=== PATIENT | male | born 1965 | race Caucasian/White ===

== ENCOUNTER 2016-09-19 14:29 | Inpatient (IN) ==
--- NOTE | 2016-09-19 15:03 | Emergency Department Note ---
Disposition Clinical Impression: Suicidal ideations Depression (emotion) Qualifiers: Depression Type: unspecified Qualified Code(s): F32.9 - Major depressive disorder, single episode, unspecified Disposition: Admitted As Inpatient Condition: Serious Referrals: NO,PCP [Primary Care Provider] - Forms: ED Satisfaction Letter Time of Disposition: 19:25 Psych HPI - General Chief Complaint: ED Psychiatric Symptoms Stated Complaint: SI Time Seen by Provider: 09/19/16 14:57 Source: patient Limitations: no limitations Nursing Notes Reviewed: Yes Vital Signs Reviewed: Yes - History of Present Illness HPI Narrative: Patient is a 52-year-old male who complains of suicidal ideation. Patient states that he was going to kill himself by means of carbon monoxide via using a hose and exhaust pipe. Patient states that he did not go through it secondary to thoughts of his kids and needing to be around for it. Patient states that he has been feeling very depressed since his mother 2 years ago and things have just been getting worse since then. Patient states that he stopped seeing a psychiatrist secondary to did not believe that psychiatrist was doing anything for him. Patient stopped taking his medications for depression 2-3 months ago (fluoxetine BuSpar and Seroquel). Patient admits to SI but denies HI - Related Data Home Medications Medication Instructions Recorded Confirmed Buspirone HCl [Buspar] 7.5 mg PO BID 09/11/15 11/21/15 FLUoxetine HCl [Prozac] 40 mg PO DAILY 09/11/15 11/21/15 Furosemide [Lasix] 20 mg PO BID 09/11/15 11/21/15 Omeprazole [PriLOSEC] 40 mg PO DAILY 09/11/15 11/21/15 Quetiapine Fumarate [Seroquel] 50 mg PO HS 09/11/15 11/21/15 Tizanidine HCl [Zanaflex] 2 mg PO TID PRN 09/11/15 11/21/15 Topiramate [Topamax] 50 mg PO BID 09/11/15 11/21/15 Atorvastatin Calcium [Lipitor] 20 mg PO HS 11/21/15 11/21/15 Cholecalciferol (Vitamin D3) 1,000 unit PO DAILY 11/21/15 11/21/15 [Vitamin D3] Lisinopril 2.5 mg PO HS 11/21/15 11/21/15 Previous Rx's Medication Instructions Recorded Aspirin Enteric Coated [Aspirin EC] 325 mg PO BID #60 tablet. 11/22/15 OxyCODONE/APAP 5/325 [Percocet 1 - 2 each PO Q4HR PRN #90 tablet 11/22/15 5/325 MG] Allergies Allergy/AdvReac Type Severity Reaction Status Date / Time Penicillins AdvReac Vomiting Verified 11/21/15 06:57 All systems ED: reviewed and negative except as stated. Constitutional: Denies: fever, chills Eyes: Denies: eye pain, eye discharge ENT ED: Denies: ear pain, throat pain Cardiovascular: Denies: chest pain, palpitations Respiratory: Denies: cough, dyspnea Gastrointestinal: Denies: abdominal pain, nausea Genitourinary: Denies: urgency, dysuria Musculoskeletal: Reports: back pain (Chronic). Denies: neck pain Integumentary: Denies: rash, abrasion Neurological: Denies: headache, weakness Psychiatric: Reports: anxiety, depression Endocrine: Denies: fatigue, heat or cold intolerance Hematological/Lymphatic: Denies: easy bleeding, easy bruising Allergic/Immunologic: Denies: facial swelling, urticaria Past Medical History - Past Medical History Attestation: Yes The following information was validated with the patient. Source: patient Medical history: Reports: GERD, arthritis, hypertension, other Surgical history: Reports: orthopedic, other Psychiatric history: Reports: anxiety, depression, prior suicide attempt, previous psychiatric hospitalization - Social History Smoking Status: Never smoker Smokeless Tobacco Status: No Alcohol use: Reports: none Drug use: Reports: marijuana Physical Exam Vital Signs Temperature 97.6 F 09/19/16 14:31 Pulse Rate 91 09/19/16 14:31 Respiratory Rate 09/19/16 14:31 Blood Pressure 136/93 09/19/16 14:31 O2 Sat by Pulse Oximetry 97 09/19/16 14:31 Temperature 97.6 F 09/19/16 14:31 Pulse Rate 91 09/19/16 14:31 Respiratory Rate 09/19/16 14:31 Blood Pressure 136/93 09/19/16 14:31 O2 Sat by Pulse Oximetry 97 09/19/16 14:31 Oxygen Delivery Oxygen Delivery Room Air -General Appearance: Patient is a 81-year-old male who is alert and oriented 3 and in no acute distress. Patient appears tearful and emotional. -Neurological exam: Cranial nerves II-12 intact, no focal deficits observed, strength equal 5/5 bilaterally in upper and lower extremities - Head Head exam: atraumatic, normocephalic, normal inspection - Eye Eye exam: Present: normal appearance, PERRL, EOMI, negative for scleral icterus negative for conjunctival pallor - ENT ENT exam: normal exam, normal oropharynx, mucous membranes moist - Neck Neck exam: Present: normal inspection, full ROM, trachea midline, negative JVD - Chest Chest inspection: Present: Patient has bilateral equal rise and fall of chest wall. Non-tender to palpation. - Respiratory Respiratory exam: Clear to auscultation bilaterally without wheezes rales or rhonchi Cardiovascular Cardiovascular exam: Present: regular rate, normal rhythm, normal heart sounds, without murmurs rubs or gallops. - Abdominal Exam Abdominal exam: Present: soft, nondistended, Non-Tender light and deep palpation in all quadrants. Bowel sounds normoactive throughout all 4 quadrants. Negative for hyper or hyperresonance. - Extremities Exam Extremities exam: Present: normal inspection, full ROM patient has bilateral rib radial pulses and bilateral. Dorsal pedal pulses equal regular bilateral - Back Exam Back exam: Present: normal inspection, full ROM. - Psychiatric Psychiatric exam: Present: Sad and depressed mood - Skin Skin exam: Present: warm, dry, intact, normal color patient has multiple tattoos - General Limitations: no limitations General appearance: anxious Course Course Narrative: Patient seen and examined. Labs ordered - Reevaluation(s) Reevaluation #1: Patient lying down comfortably in no acute distress Time: 15:25 Reevaluation #2: Patient resting comfortably. No complaints. Time: 16:13 Reevaluation #3: Patient is resting comfortably. Patient awaiting 1A evaluation Time: 18:48 Vital Signs Temperature 97.6 F 09/19/16 14:31 Pulse Rate 91 09/19/16 14:31 Respiratory Rate 09/19/16 14:31 Blood Pressure 136/93 09/19/16 14:31 O2 Sat by Pulse Oximetry 97 09/19/16 14:31 Temperature 97.6 F 09/19/16 14:31 Pulse Rate 91 09/19/16 14:31 Respiratory Rate 09/19/16 14:31 Blood Pressure 136/93 09/19/16 14:31 O2 Sat by Pulse Oximetry 97 09/19/16 14:31 Oxygen Delivery Oxygen Delivery Room Air Psych - MDM Narrative Medical decision making narrative: Patient history in exam concerning for possible suicidal ideation secondary to patient's history. Patient admits to wanting to commit suicide via carbon monoxide poisoning. States that he was going to take a hose and put it to the exhaust pipe. Patient medically cleared for 1A evaluation - Medical Records Medical records reviewed: Yes I reviewed the patient's medical records. - Lab Data Lab results reviewed: Yes I reviewed the patient's lab results. Lab results narrative: Short CBC 09/19/16 Range/Units 15:09 WBC 12.6 H (4.3-11.1) K/mcL Hgb 15.3 (12.9-16.9) g/dL Hct 45.2 (37.5-50.1) % Plt Count 265 (140-400) K/mcL Neutrophils # 9.4 H (1.6-8.9) K/mcL BMP 09/19/16 Range/Units 15:09 Sodium 141 (136-145) mEq/L Potassium 4.4 (3.5-4.5) mEq/L Chloride 107 (98-109) mEq/L Carbon Dioxide 25 (19-29) mEq/L BUN 17 (8-26) mg/dL Creatinine 0.96 (0.72-1.25) mg/dL Glucose 108 H (70-99) mg/dL Calcium 10.4 (8.6-10.8) mg/dL Urine 09/19/16 Range/Units 16:47 Urine Color Yellow (Yellow) Urine Clarity Cloudy A (Clear) Urine pH 6.5 (5.0-8.0) pH Units Ur Specific [place] 1.011 (1.010-1.025) Urine Protein Negative (Neg-Trace) mg/dL Urine Glucose (UA) Normal (Normal) mg/dL Result diagrams: 09/19/16 15:09 09/19/16 15:09 Lab Results 09/19/16 09/19/16 09/19/16 Range/Units 15:09 15:09 15:13 WBC 12.6 H (4.3-11.1) K/mcL RBC 5.03 (4.19-5.50) M/mcL Hgb 15.3 (12.9-16.9) g/dL Hct 45.2 (37.5-50.1) % MCV 89.9 (83.0-100.0) fL MCH 30.4 (28.0-33.3) pg MCHC 33.8 (31.6-35.5) g/dL RDW 13.2 (11.5-14.5) % Plt Count 265 (140-400) K/mcL MPV 9.9 (9.4-12.4) fL Immature Gran % 0.3 (0-4) % Seg Neutrophils % 74.6 % Lymphocytes % 16.8 % Monocytes % 5.7 % Eosinophils % 2.2 % Basophils % 0.4 % Neutrophils # 9.4 H (1.6-8.9) K/mcL Lymphocytes # 2.1 (0.6-4.6) K/mcL Monocytes # 0.7 (0.0-1.3) K/mcL Eosinophils # 0.3 (0.0-0.6) K/mcL Basophils # 0.1 (0.0-0.2) K/mcL Sodium 141 (136-145) mEq/L Potassium 4.4 (3.5-4.5) mEq/L Chloride 107 (98-109) mEq/L Carbon Dioxide 25 (19-29) mEq/L BUN 17 (8-26) mg/dL Creatinine 0.96 (0.72-1.25) mg/dL Est GFR ( Amer) > 60 (> 60) Est GFR (Non-Af Amer) > 60 (> 60) BUN/Creatinine Ratio 18 (6-26) Glucose 108 H (70-99) mg/dL POC Glucose 105 H (58-89) Calculated Osmolality 294 (280-300) Calcium 10.4 (8.6-10.8) mg/dL Urine Color (Yellow) Urine Clarity (Clear) Urine pH (5.0-8.0) pH Units Ur Specific [place] (1.010-1.025) Urine Protein (Neg-Trace) mg/dL Urine Glucose (UA) (Normal) mg/dL Urine Ketones (Negative) mg/dL Urine Blood (Negative) Urine Nitrite (Negative) Urine Bilirubin (Negative) Urine Urobilinogen (Normal) mg/dL Ur Leukocyte Esterase (Negative) Urine Microscopic RBC (0-3) per hpf Urine Microscopic WBC (0-3) per hpf Ur Squamous Epith Cells (None-Few) per lpf Urine Bacteria (None-Few) per hpf Hyaline Casts (None-Few) per lpf Salicylates < 5.0 L (15-30) mg/dL Urine Opiates Screen (Zzrfpb=851) ng/mL Acetaminophen < 1.0 L (10-30) mcg/mL Ur Barbiturates Screen (Gepkmn=683) ng/mL Ur Phencyclidine Scrn (Cutoff=25) ng/mL Ur Amphetamines Screen (Uxxkiq=1732) ng/mL U Benzodiazepines Scrn (Uqtjmb=561) ng/mL Urine Cocaine Screen (Cutoff= 300) ng/mL U Marijuana (THC) Screen (Cutoff = 50) ng/mL Ethyl Alcohol < 10 (0-10) mg/dL 09/19/16 09/19/16 Range/Units 16:47 16:47 WBC (4.3-11.1) K/mcL RBC (4.19-5.50) M/mcL Hgb (12.9-16.9) g/dL Hct (37.5-50.1) % MCV (83.0-100.0) fL MCH (28.0-33.3) pg MCHC (31.6-35.5) g/dL RDW (11.5-14.5) % Plt Count (140-400) K/mcL MPV (9.4-12.4) fL Immature Gran % (0-4) % Seg Neutrophils % % Lymphocytes % % Monocytes % % Eosinophils % % Basophils % % Neutrophils # (1.6-8.9) K/mcL Lymphocytes # (0.6-4.6) K/mcL Monocytes # (0.0-1.3) K/mcL Eosinophils # (0.0-0.6) K/mcL Basophils # (0.0-0.2) K/mcL Sodium (136-145) mEq/L Potassium (3.5-4.5) mEq/L Chloride (98-109) mEq/L Carbon Dioxide (19-29) mEq/L BUN (8-26) mg/dL Creatinine (0.72-1.25) mg/dL Est GFR ( Amer) (> 60) Est GFR (Non-Af Amer) (> 60) BUN/Creatinine Ratio (6-26) Glucose (70-99) mg/dL POC Glucose (58-89) Calculated Osmolality (280-300) Calcium (8.6-10.8) mg/dL Urine Color Yellow (Yellow) Urine Clarity Cloudy A (Clear) Urine pH 6.5 (5.0-8.0) pH Units Ur Specific [place] 1.011 (1.010-1.025) Urine Protein Negative (Neg-Trace) mg/dL Urine Glucose (UA) Normal (Normal) mg/dL Urine Ketones Negative (Negative) mg/dL Urine Blood Negative (Negative) Urine Nitrite Negative (Negative) Urine Bilirubin Negative (Negative) Urine Urobilinogen Normal (Normal) mg/dL Ur Leukocyte Esterase Negative (Negative) Urine Microscopic RBC 0-3 (0-3) per hpf Urine Microscopic WBC 0-3 (0-3) per hpf Ur Squamous Epith Cells Moderate H (None-Few) per lpf Urine Bacteria None Seen (None-Few) per hpf Hyaline Casts None Seen (None-Few) per lpf Salicylates (15-30) mg/dL Urine Opiates Screen Negative (Rjthhh=366) ng/mL Acetaminophen (10-30) mcg/mL Ur Barbiturates Screen Negative (Gkxjmm=528) ng/mL Ur Phencyclidine Scrn Negative (Cutoff=25) ng/mL Ur Amphetamines Screen Negative (Cgbhjj=5719) ng/mL U Benzodiazepines Scrn Negative (Dsgkuc=916) ng/mL Urine Cocaine Screen Negative (Cutoff= 300) ng/mL U Marijuana (THC) Screen Positive H (Cutoff = 50) ng/mL Ethyl Alcohol (0-10) mg/dL Psychiatric Medical Clearance - Medical Clearance Checklist Does the patient have a NEW psychiatric condition?: No Any abnormalities indicating possible medical illness?: No Any history of medical issues?: Yes Medical History: No Social History Section defined Hypertension arthritis GERD Any abnormal vital signs prior to transfer?: No Current Vitals: Last Vital Signs Temp 97.6 F 09/19/16 14:31 Pulse 91 09/19/16 14:31 Resp 20 09/19/16 14:31 BP 136/93 09/19/16 14:31 Pulse Ox 97 09/19/16 14:31 Is the patient intoxicated or cognitively impaired?: No Psychiatric Lab Panel: Drug Levels and Toxicity 09/19/16 09/19/16 15:09 16:47 Urine Opiates Screen Negative Acetaminophen < 1.0 L Ur Barbiturates Screen Negative Ur Phencyclidine Scrn Negative Ur Amphetamines Screen Negative U Benzodiazepines Scrn Negative Urine Cocaine Screen Negative U Marijuana (THC) Screen Positive H Ethyl Alcohol < 10 Any abnormalities on the physical exam?: No Any abnormal labs?: Yes Abnormal Labs: Abnormal lab results WBC 12.6 K/mcL (4.3-11.1) H 09/19/16 15:09 Neutrophils # 9.4 K/mcL (1.6-8.9) H 09/19/16 15:09 Glucose 108 mg/dL (70-99) H 09/19/16 15:09 POC Glucose 105 (58-89) H 09/19/16 15:13 Urine Clarity Cloudy (Clear) A 09/19/16 16:47 Ur Squamous Epith Cells Moderate per lpf (None-Few) H 09/19/16 16:47 Salicylates < 5.0 mg/dL (15-30) L 09/19/16 15:09 Acetaminophen < 1.0 mcg/mL (10-30) L 09/19/16 15:09 U Marijuana (THC) Screen Positive ng/mL (Cutoff = 50) H 09/19/16 16:47 Does the patient require durable medical equiptment?: No Is the patient ambulatory?: Yes Is the patient a fall risk?: No Has the patient been medically cleared?: Yes Any acute medical condition require Tx prior to transfer?: No Attestation Statement - Attestation Attestation: I examined this patient and my medical decision-making was reviewed with the PIPE CHIPPER/PA/Advanced Practice Nurse/Resident Physician. I agree with the documented findings, disposition and treatment plan as described except to the extent set forth below. Patient to the emergency department with suicidal thoughts. Plan was to by carbon monoxide poisoning. Patient states he has been very depressed and he stopped taking his antidepressants. Exam shows laying in bed in no distress. Abdomen soft lungs clear. Plan. Medical clearance and 1 evaluation. Patient evaluated by one dose is appropriate for admission.
[2016-09-19 15:15] LABS: Basophils # 0.1 K/mcL (0.0-0.2); Basophils % 0.4 %; Eosinophils # 0.3 K/mcL (0.0-0.6); Eosinophils % 2.2 %; Hematocrit 45.2 % (37.5-50.1); Hemoglobin 15.3 g/dL (12.9-16.9); Immature Granulocytes % 0.3 % (0-4); Lymphocytes # 2.1 K/mcL (0.6-4.6); Lymphocytes % 16.8 %; Mean Corpuscular HGB Conc 33.8 g/dL (31.6-35.5); Mean Corpuscular Hemoglobin 30.4 pg (28.0-33.3); Mean Corpuscular Volume 89.9 fL (83.0-100.0); Mean Platelet Volume 9.9 fL (9.4-12.4); Monocytes # 0.7 K/mcL (0.0-1.3); Monocytes % 5.7 %; Neutrophils # 9.4 K/mcL (1.6-8.9); Platelet Count 265 K/mcL (140-400); Red Blood Count 5.03 M/mcL (4.19-5.50); Red Cell Distribution Width 13.2 % (11.5-14.5); Segmented Neutrophils % 74.6 %
[2016-09-19 15:30] LABS: BUN/Creatinine Ratio 18 (6-26); Blood Urea Nitrogen 17 mg/dL (8-26); Calcium 10.4 mg/dL (8.6-10.8); Carbon Dioxide 25 mEq/L (19-29); Chloride 107 mEq/L (98-109); Glucose 108 mg/dL (70-99); Osmolality,Calculated 294 (280-300); Potassium 4.4 mEq/L (3.5-4.5); Sodium 141 mEq/L (136-145); eGFR For African Americans > 60 (> 60); eGFR For Non-African Americans > 60 (> 60)
[2016-09-19 15:31] LABS: Acetaminophen < 1.0 mcg/mL (10-30); Ethanol < 10 mg/dL (0-10); Salicylate < 5.0 mg/dL (15-30)
[2016-09-19 16:57] LABS: Bilirubin,Urine Negative (Negative); Blood,Urine Negative (Negative); Clarity,Urine Cloudy (Clear); Color,Urine Yellow (Yellow); Glucose,Urine (UA) Normal (Normal); Ketones,Urine Negative (Negative); Leukocyte Esterase,Urine Negative (Negative); Nitrite,Urine Negative (Negative); PH,Urine 6.5 pH Units (5.0-8.0); Protein,Urine Negative (Neg-Trace); Specific Gravity,Urine 1.011 (1.010-1.025); Urobilinogen,Urine Normal (Normal)
[2016-09-19 17:00] LABS: Bacteria,Urine None Seen per hpf (None-Few); Hyaline Casts,Urine None Seen per lpf (None-Few); RBC,Urine 0-3 per hpf (0-3); Squamous Epithelial Cell,Urine Moderate per lpf (None-Few); WBC,Urine 0-3 per hpf (0-3)
[2016-09-19 17:49] LABS: Amphetamine Screen,Urine Negative ng/mL (Cutoff=1000); Barbiturate Screen,Urine Negative ng/mL (Cutoff=200); Benzodiazepines Screen,Urine Negative ng/mL (Cutoff=200); Cannabinoid Screen,Urine Positive ng/mL (Cutoff = 50); Cocaine Screen,Urine Negative ng/mL (Cutoff= 300); Opiate Screen,Urine Negative ng/mL (Cutoff=300); Phencyclidine Screen,Urine Negative ng/mL (Cutoff=25)
[2016-09-19] MEDS ORDERED: traZODone 50 MG TABLET PO PRN (20:30)
[2016-09-19] MEDS ORDERED: MOM Conc 10 ML UD.LIQ PO PRN (20:30)
[2016-09-19] MEDS ORDERED: Haloperidol Lactate 5 MG/ML VIAL IM PRN (20:30)
[2016-09-19] MEDS ORDERED: *HR* LORazepam 1 MG TABLET PO PRN (20:30)
[2016-09-19] MEDS ORDERED: Acetaminophen 325 MG TABLET PO PRN (20:30)
[2016-09-19] MEDS ORDERED: hydrOXYzine pamoate 25 MG CAPSULE PO PRN (20:30)
[2016-09-19] MEDS ORDERED: *HR* LORazepam 2 MG/ML VIAL IM PRN (20:30)
[2016-09-19] MEDS: Mag Hydrox/Al Hydrox/Simeth 30 ML UDC PO PRN (21:22)
--- NOTE | 2016-09-20 11:21 | Psychiatry History & Physical ---
Date of Encounter: 09/20/16 Time of Encounter: 11:18 History of Present Illness Patient Stated Chief Complaint: suicidal and homeless Medicare Admission Attestation: For traditional Medicare patients the provided hospital inpatient services are reasonable and necessary and in the case of services not specified as inpatient -only under 42 CFR 419.22 (n), that they are appropriately provided as inpatient services in accordance 42 CFR 412.3. For Critical Access Hospital the patient may reasonably be expected to be discharged or transferred to a hospital within 96 hours after admission to the Critical Access Hospital. Admitted From: Emergency Dept History of Present Illness: Mr. Omalley is a 51 year old male presented to the emergency department with complaint of suicidal ideation with intention to use carbon monoxide to kill himself, also he stated that he is homeless and he was to be discharged he would kill himself. Patient stopped taking his medication as 3 months ago he did not believe it was helping he has not been making any appointments he is unemployed stressed out by financial issues. Reports poor sleep depressed moods and irritability and suicidal thoughts. Patient had previous hospitalization and treatment but did not follow up. Past Med Surg Social Fam HX - Past Medical History Medical history: arthritis, diabetes, GERD, hypertension, seizures, other - Past Psychiatric History Psychiatric history: Reports: depression, previous psychiatric hospitalization Family psychiatric history: Unknown Family History of Suicide: Unknown - Past Surgical History Surgical History: orthopedic, other - Social History Smoking Status: Never smoker Smokeless Tobacco Status: No Alcohol use: none Drug use: marijuana - Family History Mother Adopted: Yes Father Adopted: Yes Medications & Allergies Buspirone HCl [Buspar] 7.5 mg PO BID 09/11/15 [History] FLUoxetine HCl [Prozac] 40 mg PO DAILY 09/11/15 [History] Furosemide [Lasix] 20 mg PO BID 09/11/15 [History] Omeprazole [PriLOSEC] 40 mg PO DAILY 09/11/15 [History] Quetiapine Fumarate [Seroquel] 50 mg PO HS 09/11/15 [History] Tizanidine HCl [Zanaflex] 2 mg PO TID PRN 09/11/15 [History] Topiramate [Topamax] 50 mg PO BID 09/11/15 [History] Atorvastatin Calcium [Lipitor] 20 mg PO DAILY 11/21/15 [History] Cholecalciferol (Vitamin D3) [Vitamin D3] 1,000 unit PO DAILY 11/21/15 [History] Lisinopril 2.5 mg PO HS 11/21/15 [History] Aspirin Enteric Coated [Aspirin EC] 325 mg PO BID #60 tablet. 11/22/15 [Rx] Metformin [Glucophage] 500 mg PO BID 09/19/16 [History] OxyCODONE/APAP 5/325 [Percocet 5/325 MG] 1 tab PO Q4HR PRN 09/19/16 [History] Allergies Penicillins Allergy (Unknown, Verified 09/19/16 20:02) Vomiting PATIENT UNSURE OF HIS REACTION- CHILDHOOD ALLERGY Review of Systems Psychiatric: Reports: depression, suicidal ideation Mental Status Exam Patient orientation: Yes Person, Yes Time, Yes Place Level of alertness: Alert Patient appearance: Appropriate, Well Groomed Additional observations: Patient was irritable and angry. Avoids eye contact he was hostile confrontational and disrespectful towards the doctor and he needed redirection to stay in control. Behavior: calm, cooperative, anxious, distractible Psychomotor activity: Normal Eye contact: Minimal Contact Mood description: Depressed, Anxious, Irritable Affect description: constricted, dysphoric, anxious Speech pattern: Normal rate, Normal rhythm, Normal tone, Limited Speech volume: Normal Thought process: Linear, Goal Oriented Thought content: Yes Suicidal ideation, Yes Preoccupation Perceptual disturbances: No Auditory hallucinations, No Visual hallucinations Attention span: Capable of Focused Attention Memory description: Immediate Impaired, Remote Impaired Patient reliability: Questionable Historian Intelligence estimate: Average Judgment: Limited Insight: Partial Results - Vital Signs Vital signs: Temp Pulse Resp BP Pulse Ox 98.0 F 73 18 130/96 95 09/20/16 09:00 09/20/16 09:00 09/20/16 09:00 09/20/16 09:00 09/19/16 19:51 - Labs Labs: Laboratory Last Values WBC 12.6 K/mcL (4.3-11.1) H 09/19/16 15:09 RBC 5.03 M/mcL (4.19-5.50) 09/19/16 15:09 Hgb 15.3 g/dL (12.9-16.9) 09/19/16 15:09 Hct 45.2 % (37.5-50.1) 09/19/16 15:09 MCV 89.9 fL (83.0-100.0) 09/19/16 15:09 MCH 30.4 pg (28.0-33.3) 09/19/16 15:09 MCHC 33.8 g/dL (31.6-35.5) 09/19/16 15:09 RDW 13.2 % (11.5-14.5) 09/19/16 15:09 Plt Count 265 K/mcL (140-400) 09/19/16 15:09 MPV 9.9 fL (9.4-12.4) 09/19/16 15:09 Immature Gran % 0.3 % (0-4) 09/19/16 15:09 Seg Neutrophils % 74.6 % 09/19/16 15:09 Lymphocytes % 16.8 % 09/19/16 15:09 Monocytes % 5.7 % 09/19/16 15:09 Eosinophils % 2.2 % 09/19/16 15:09 Basophils % 0.4 % 09/19/16 15:09 Neutrophils # 9.4 K/mcL (1.6-8.9) H 09/19/16 15:09 Lymphocytes # 2.1 K/mcL (0.6-4.6) 09/19/16 15:09 Monocytes # 0.7 K/mcL (0.0-1.3) 09/19/16 15:09 Eosinophils # 0.3 K/mcL (0.0-0.6) 09/19/16 15:09 Basophils # 0.1 K/mcL (0.0-0.2) 09/19/16 15:09 Sodium 141 mEq/L (136-145) 09/19/16 15:09 Potassium 4.4 mEq/L (3.5-4.5) 09/19/16 15:09 Chloride 107 mEq/L (98-109) 09/19/16 15:09 Carbon Dioxide 25 mEq/L (19-29) 09/19/16 15:09 BUN 17 mg/dL (8-26) 09/19/16 15:09 Creatinine 0.96 mg/dL (0.72-1.25) 09/19/16 15:09 Est GFR ( Amer) > 60 (> 60) 09/19/16 15:09 Est GFR (Non-Af Amer) > 60 (> 60) 09/19/16 15:09 BUN/Creatinine Ratio 18 (6-26) 09/19/16 15:09 Glucose 108 mg/dL (70-99) H 09/19/16 15:09 POC Glucose 135 (58-89) H 09/20/16 08:47 Calculated Osmolality 294 (280-300) 09/19/16 15:09 Calcium 10.4 mg/dL (8.6-10.8) 09/19/16 15:09 Urine Color Yellow (Yellow) 09/19/16 16:47 Urine Clarity Cloudy (Clear) A 09/19/16 16:47 Urine pH 6.5 pH Units (5.0-8.0) 09/19/16 16:47 Ur Specific [place] 1.011 (1.010-1.025) 09/19/16 16:47 Urine Protein Negative mg/dL (Neg-Trace) 09/19/16 16:47 Urine Glucose (UA) Normal mg/dL (Normal) 09/19/16 16:47 Urine Ketones Negative mg/dL (Negative) 09/19/16 16:47 Urine Blood Negative (Negative) 09/19/16 16:47 Urine Nitrite Negative (Negative) 09/19/16 16:47 Urine Bilirubin Negative (Negative) 09/19/16 16:47 Urine Urobilinogen Normal mg/dL (Normal) 09/19/16 16:47 Ur Leukocyte Esterase Negative (Negative) 09/19/16 16:47 Urine Microscopic RBC 0-3 per hpf (0-3) 09/19/16 16:47 Urine Microscopic WBC 0-3 per hpf (0-3) 09/19/16 16:47 Ur Squamous Epith Cells Moderate per lpf (None-Few) H 09/19/16 16:47 Urine Bacteria None Seen per hpf (None-Few) 09/19/16 16:47 Hyaline Casts None Seen per lpf (None-Few) 09/19/16 16:47 Salicylates < 5.0 mg/dL (15-30) L 09/19/16 15:09 Urine Opiates Screen Negative ng/mL (Duhots=147) 09/19/16 16:47 Acetaminophen < 1.0 mcg/mL (10-30) L 09/19/16 15:09 Ur Barbiturates Screen Negative ng/mL (Lachnu=531) 09/19/16 16:47 Ur Phencyclidine Scrn Negative ng/mL (Cutoff=25) 09/19/16 16:47 Ur Amphetamines Screen Negative ng/mL (Ffrsvw=4934) 09/19/16 16:47 U Benzodiazepines Scrn Negative ng/mL (Evmzxc=161) 09/19/16 16:47 Urine Cocaine Screen Negative ng/mL (Cutoff= 300) 09/19/16 16:47 U Marijuana (THC) Screen Positive ng/mL (Cutoff = 50) H 09/19/16 16:47 Ethyl Alcohol < 10 mg/dL (0-10) 09/19/16 15:09 Assessment and Plan (1) Major depressive disorder, recurrent episode Current visit: Yes Status: Acute Plan: Admit inpatient for safety and stabilization, Close observation, Suicide Precautions per unit protocol, Encourage participation in unit milieu, Group Therapy, Monitor sleep, Monitor appetite Risks, benefits, side effects, alternatives discussed w/pt: Yes Patient agreeable to treatment: Yes Qualifiers: Major depression episode severity: moderate Qualified Code(s): F33.1 - Major depressive disorder, recurrent, moderate (2) Mild tetrahydrocannabinol (THC) abuse Current visit: Yes Status: Acute Plan: Admit inpatient for safety and stabilization, Close observation, Suicide Precautions per unit protocol, Encourage participation in unit milieu, Group Therapy, Monitor sleep, Monitor appetite Risks, benefits, side effects, alternatives discussed w/pt: Yes Patient agreeable to treatment: Yes
[2016-09-20] MEDS: FLUoxetine 20 MG CAPSULE PO SCH (13:49)
[2016-09-21] MEDS: FLUoxetine 20 MG CAPSULE PO SCH (09:05)
--- NOTE | 2016-09-21 13:06 | Psychiatry Progress Note ---
Date of Encounter: 09/21/16 Time of Encounter: 12:50 Subjective Interval history: Patient seen for follow-up. Nursing staff reports he is seclusive to his room and does not interact with other patients. Continue to endorse suicidal ideation without plan. He was started on medication and reports sleeping all night. Review of Systems Psychiatric: Reports: depression, suicidal ideation Objective: Exam Patient orientation: Yes Person, Yes Time, Yes Place Level of alertness: Alert Patient appearance: Appropriate, Well Groomed Behavior: calm, cooperative, anxious, distractible Psychomotor activity: Normal Eye contact: Minimal Contact Mood description: Depressed, Anxious, Irritable Affect description: constricted, dysphoric, anxious Speech pattern: Normal rate, Normal rhythm, Normal tone, Limited Speech volume: Normal Thought process: Linear, Goal Oriented Thought content: Yes Suicidal ideation, Yes Preoccupation Perceptual disturbances: No Auditory hallucinations, No Visual hallucinations Judgment: Limited Insight: Partial Results - Vital Signs Vital Signs: Temp Pulse Resp BP Pulse Ox 98.2 F 87 18 145/98 95 09/20/16 21:00 09/20/16 21:00 09/20/16 21:00 09/20/16 21:00 09/19/16 19:51 - Labs Labs: Laboratory Results - last 24 hr 09/21/16 07:13 POC Glucose 112 H Assessment and Plan (1) Major depressive disorder, recurrent episode Current visit: Yes Status: Acute Risks, benefits, side effects, alternatives discussed w/pt: Yes Patient agreeable to treatment: Yes Qualifiers: Major depression episode severity: moderate Qualified Code(s): F33.1 - Major depressive disorder, recurrent, moderate (2) Mild tetrahydrocannabinol (THC) abuse Current visit: Yes Status: Acute Risks, benefits, side effects, alternatives discussed w/pt: Yes Patient agreeable to treatment: Yes Consult Discharge Plan - Plan Referrals: NO,PCP [Primary Care Provider] -
[2016-09-21] MEDS: Mag Hydrox/Al Hydrox/Simeth 30 ML UDC PO PRN ×2 (13:28→21:02)
[2016-09-22] MEDS: FLUoxetine 20 MG CAPSULE PO SCH (08:47)
--- NOTE | 2016-09-22 16:01 | Psychiatry Progress Note ---
Date of Encounter: 09/22/16 Time of Encounter: 16:00 Subjective Interval history: Patient is seen in follow-up. The patient self reports he denies suicidal ideation, compliant with medication. He is concerned about his medical insurance and with discusses with older adult social work specialist. Denied any problem with sleep or appetite. Review of Systems Psychiatric: Reports: depression, suicidal ideation Objective: Exam Patient orientation: Yes Person, Yes Time, Yes Place Level of alertness: Alert Patient appearance: Appropriate, Well Groomed Behavior: calm, cooperative, anxious, distractible Psychomotor activity: Normal Eye contact: Minimal Contact Mood description: Depressed, Anxious, Irritable Affect description: constricted, dysphoric, anxious Speech pattern: Normal rate, Normal rhythm, Normal tone, Limited Speech volume: Normal Thought process: Linear, Goal Oriented Thought content: No Suicidal ideation, Yes Preoccupation Perceptual disturbances: No Auditory hallucinations, No Visual hallucinations Judgment: Fair Insight: Partial Results - Vital Signs Vital Signs: Temp Pulse Resp BP Pulse Ox 97.6 F 88 16 123/92 95 09/22/16 09:00 09/22/16 09:00 09/22/16 09:00 09/22/16 09:00 09/19/16 19:51 - Labs Labs: Laboratory Results - last 24 hr 09/22/16 07:33 POC Glucose 111 H Assessment and Plan (1) Major depressive disorder, recurrent episode Current visit: Yes Status: Acute Risks, benefits, side effects, alternatives discussed w/pt: Yes Patient agreeable to treatment: Yes Qualifiers: Major depression episode severity: moderate Qualified Code(s): F33.1 - Major depressive disorder, recurrent, moderate (2) Mild tetrahydrocannabinol (THC) abuse Current visit: Yes Status: Acute Risks, benefits, side effects, alternatives discussed w/pt: Yes Patient agreeable to treatment: Yes Consult Discharge Plan - Plan Referrals: NO,PCP [Primary Care Provider] -
[2016-09-22] MEDS: Mag Hydrox/Al Hydrox/Simeth 30 ML UDC PO PRN (20:38)
[2016-09-23] MEDS: FLUoxetine 20 MG CAPSULE PO SCH (08:18)
[2016-09-23 09:12] VITALS: BP 132/102
--- NOTE | 2016-09-23 13:58 | Discharge Summary ---
Date of Encounter: 09/23/16 Time of Encounter: 13:15 Diagnosis - Discharge Diagnosis (1) Major depressive disorder, recurrent episode Status: Acute Qualifiers: Major depression episode severity: moderate Qualified Code(s): F33.1 - Major depressive disorder, recurrent, moderate Medications - Discharge Medications Prescriptions: FLUoxetine HCl [Prozac] 20 mg PO DAILY #30 capsule Omeprazole [PriLOSEC] 40 mg PO DAILY #30 capsule. Quetiapine Fumarate [Seroquel] 100 mg PO HS #30 tablet Furosemide [Lasix] 20 mg PO BID 09/11/15 [History] Tizanidine HCl [Zanaflex] 2 mg PO TID PRN 09/11/15 [History] Topiramate [Topamax] 50 mg PO BID 09/11/15 [History] Lisinopril 2.5 mg PO HS 11/21/15 [History] Aspirin Enteric Coated [Aspirin EC] 325 mg PO BID #60 tablet. 11/22/15 [Rx] Metformin [Glucophage] 500 mg PO BID 09/19/16 [History] FLUoxetine HCl [Prozac] 20 mg PO DAILY #30 capsule 09/23/16 [Rx] Omeprazole [PriLOSEC] 40 mg PO DAILY #30 capsule. 09/23/16 [Rx] Quetiapine Fumarate [Seroquel] 100 mg PO HS #30 tablet 09/23/16 [Rx] Allergies Penicillins Allergy (Unknown, Verified 09/19/16 20:02) Vomiting PATIENT UNSURE OF HIS REACTION- CHILDHOOD ALLERGY Provider Date of admission: 09/19/16 19:52 Primary care physician: PCP NO Discharging clinician: Daniel Dexter Assessment and Plan - Patient/Caregiver Discharge Instructions Activity: resume usual activities as tolerated Diet: regular diet - Follow up Plan Follow up with: Cristina Lopez [Outside] - 10/09/16 4:00 pm (The above appointment is with Bailee Blanton. When you come to your first appointment, you will have an orientation to the agency and you will meet with a counselor. Please bring the following with you to your first visit to the clinic: 1) proof of household income (two consecutive pay stubs, social security award letter, bank statement, statement letter from [facility], child support statement, IRS 1040 or W2 form, or a statement from the person who financially supports you stating they help provide for your basic needs), 2) proof of residency (drivers license , a piece of mail showing your address, a statement from person you live with verifying you live at their address), 3) your social security number, and 4) your insurance card (if you have commercial insurance you must call to obtain a prior authorization number before you arrive to your first appointment). If you do not bring these items, you will not be seen.) Colin Monterroso PAC [Physician Door To Door Selling Agent] - 10/06/16 10:00 am (The above appointment is with SONIA Ahuja at [facility]. This appointment is to establish you with a primary care provider. If you have needs related to psychiatric medication and/or Vivitrol, you will be assessed for these as well. Please arrive 15 minutes early to complete paperwork. Please bring your insurance card, photo ID and list of current medications to your first appointment.) Overall status at discharge: Stable Disposition: Home, Self-Care Hospital Course Hospital course: Mr. Omalley is a 51 year old male who tells me he is "better". He states that he is no longer actively suicidal. He states he still is slightly depressed having low energy but his sleep is slowly improving with the medication. He is happy that he was able to get his Prozac restarted. He feels hopeful about the future. He states the Seroquel is helping him sleep. He denies any side effects of the medication. He states that he is little anxious not knowing about his living arrangements with his sister. He talks to his sister on the phone while he is in my office and she states it will be fine with him living with her. He still needs to resolve the social issues with his girlfriend that in part precipitated some of his depression. He talks about that being behind him, but I expressed to him there were probably still remaining issues that needed to be resolved. He acknowledged and will speak to his therapist in outpatient. He will be compliant and taking his medications. He denies any suicidal or homicidal ideation. He denies any auditory or visual hallucinations. - Time Spent with Patient Total time spent providing and/or coordinating discharge services: 30 min Quality - Multiple Antipsychotics Patient discharged on 2 or more antipsychotic medications: No Mental Status Exam - Mental Status Exam Patient orientation: Yes Person, Yes Time, Yes Place Level of alertness: Alert Patient appearance: Appropriate, Well Groomed Behavior: calm, cooperative, anxious Psychomotor activity: Normal Eye contact: Maintains Eye Contact Mood description: Depressed (mildly), Anxious (mildly) Affect description: congruent with mood, anxious Speech pattern: Normal rate, Normal rhythm, Normal tone Speech Volume: Normal Thought process: Linear, Goal Oriented Thought Content: Yes Intact Judgment: Fair Insight: Partial
[2016-09-23] MEDS ORDERED: FLU VACC QS2016-17 36MOS UP/PF 0.5 ML SYRINGE IM ONE (14:20)
== END 2016-09-23 16:20 | disposition home or self-care (01) | DRG 751 ==
LOC: EMEROO 14:29 → SUATTDRO 19:52 → 1ANU 19:52
PROVIDERS: ADMIT Psychiatry & Neurology Psychiatry; ATTEND Psychiatry & Neurology Psychiatry